=== PATIENT | male | born 1970 | race Caucasian/White ===

== ENCOUNTER 2021-11-30 21:06 | Inpatient (IN) | payer OTHER ==
[~2021-11-30] VITALS: Ht 180.3 cm; Wt 91.5 kg
[~2021-11-30 21:06] MED LIST: ACET-2247 PO; BUSP10TA23 PO; CLOZ100T32 PO; DOCU250C91 PO; HALO100V4 IM; LORA-1000 PO; MIRT-89 PO; MULT-13 PO; OLAN10TA74 PO; OMEP20 PO; PROP10TA73 PO; VENL-68 PO
[2021-11-30] MEDS ORDERED: TOPI25 PO (21:28)
[2021-11-30] MEDS ORDERED: FLUO20CA36 PO (21:28)
[2021-11-30] MEDS ORDERED: CLOZ100T32 PO (21:28)
[2021-11-30] MEDS ORDERED: BENZ2TAB10 PO (21:28)
[2021-11-30] MEDS ORDERED: LORA-1001 PO (21:28)
[2021-11-30] MEDS ORDERED: SUMA25TA9 PO (21:28)
[2021-11-30] MEDS ORDERED: DIVA125C20 PO (21:28)
[2021-11-30] MEDS ORDERED: MIRT-89 PO (22:13)
[2021-11-30 22:30] LABS: BASOPHILS % (AUTO) 0.3 % (0.0-2.0); EOSINOPHILS % (AUTO) 0.5 % (1.0-6.0); HEMOGLOBIN 14.6 g/dL (13.5-17.5); LYMPHOCYTES # (AUTO) 1.4 K/uL (1.0-4.8); LYMPHOCYTES % (AUTO) 17.5 % (22.0-44.0); MEAN CORPUSCULAR HEMOGLOBIN 28.1 pg (26.0-34.0); MEAN CORPUSCULAR HGB CONC 34.1 G/dL (31.0-37.0); MEAN CORPUSCULAR VOLUME 83 fL (80-100); MONOCYTES # (AUTO) 0.5 K/uL (0.1-1.0); MONOCYTES % (AUTO) 5.6 % (2.0-9.0); NEUTROPHILS # (AUTO) 6.3 K/uL (1.8-7.7); NEUTROPHILS % (AUTO) 76.1 % (40.0-70.0); PLATELET COUNT (AUTO) 244 K/uL (150-450); RED BLOOD CELL COUNT(AUTO) 5.21 MIL/uL (4.50-5.90); RED CELL DISTRIBUTION WIDTH 15.2 % (11.5-14.5)
[2021-11-30 22:37] LABS: ANION GAP 13 mmol/L (8-16); CALCIUM, TOTAL 8.5 mg/dL (8.8-10.5); CARBON DIOXIDE 24 mmol/L (22-29); CHLORIDE 101 mmol/L (98-107); CREATININE 0.93 mg/dL (0.60-1.30); GLOMERULAR FILTR. RATE CALC > 60 mL/min (>60); GLUCOSE,RANDOM 199 mg/dL (70-110); POTASSIUM 3.4 mmol/L (3.5-5.1); SODIUM SERUM 138 mmol/L (136-145); UREA NITROGEN, BLOOD 15 mg/dL (7-18)
[2021-11-30 22:43] LABS: ALANINE AMINOTRANSFERASE 45 U/L (12-78); ALBUMIN 3.9 g/dL (3.4-5.0); ALKALINE PHOSPHATASE 58 U/L (46-116); ASPARTATE AMINOTRANSFERASE 21 U/L (15-37); BILIRUBIN,TOTAL 0.3 mg/dL (0.1-1.0); TOTAL PROTEIN, SERUM 7.1 g/dL (6.4-8.2); VALPROIC ACID 65 mcg/mL (50-100)
[2021-11-30 22:56] LABS: COVID AG,FIA SOURCE NASOPHARYNGEAL
[2021-12-01] MEDS ORDERED: SODIUM CHLORIDE 0.9% 1,000 ML IV ONE (01:45)
[2021-12-01] MEDS ORDERED: 0.9% SODIUM CHLORIDE 10 ML SYRINGE IVP PRN (01:45)
[2021-12-01 03:16] VITALS: BP 142/90
[2021-12-01 05:13] LABS: APPEARANCE,URINE HAZY (CLEAR); BILIRUBIN,URINE NEGATIVE (NEGATIVE); GLUCOSE, URINE (UA) NEGATIVE (NEGATIVE); LEUKOCYTE ESTERASE ,URINE NEGATIVE (NEGATIVE); NITRATE,URINE NEGATIVE (NEGATIVE); OCCULT BLOOD,URINE NEGATIVE (NEGATIVE); PH,URINE 6.5 (5.0-8.0); PROTEIN,URINE NEGATIVE (NEGATIVE); SPECIFIC GRAVITIY, URINE 1.012 (1.003-1.030)
[2021-12-01 05:22] LABS: AMPHET/METH SCREEN,URINE NEGATIVE (NEGATIVE); BARBITURATE SCREEN, URINE NEGATIVE (NEGATIVE); BENZODIAZEPINES SCREEN,URINE NEGATIVE (NEGATIVE); CANNABINOID SCREEN,URINE NEGATIVE (NEGATIVE); COCAINE SCREEN,URINE NEGATIVE (NEGATIVE); METHADONE SCREEN, URINE NEGATIVE (NEGATIVE); OPIATE SCREEN,URINE NEGATIVE (NEGATIVE)
[2021-12-01 05:24] LABS: PHENCYCLIDINE SCREEN,URINE NEGATIVE (NEGATIVE)
[2021-12-01 07:45] VITALS: BP 129/91
[2021-12-01] MEDS ORDERED: POTASSIUM CHLORIDE 20 MEQ ER TABLET PO PRN (08:00)
[2021-12-01] MEDS ORDERED: ACETAMINOPHEN 325 MG TABLET PO PRN (08:00)
[2021-12-01] MEDS ORDERED: POTASSIUM CHL 10 MEQ/WATER 50 ML IV PRN (08:00)
[2021-12-01] MEDS ORDERED: MAGNESIUM HYDROXIDE SUSPENSION 30 ML UDCUP PO PRN (08:00)
[2021-12-01] MEDS ORDERED: FAMOTIDINE 20 MG TABLET PO SCH (09:00)
[2021-12-01 10:54] VITALS: BP 130/77
[2021-12-01 14:26] VITALS: BP 145/92
== END 2021-12-01 19:20 | DRG 204 ==
LOC: EMS 21:13 → 5S 12-01 01:00
PROVIDERS: ADMIT Internal Medicine; ATTEND Internal Medicine
DX: R55 Syncope and collapse (principal); E87.6 Hypokalemia; F20.9 Schizophrenia, unspecified; I10 Essential (primary) hypertension; Z20.822 Contact with and (suspected) exposure to COVID-19; W18.30XA Fall on same level, unspecified, initial encounter; Y93.89 Activity, other specified; Y92.89 Other specified places as the place of occurrence of the external cause; T50.915A Adverse effect of multiple unspecified drugs, medicaments and biological substances, initial encounter; Y99.8 Other external cause status; Z88.0 Allergy status to penicillin
CPT/HCPCS: 70450; 71045; 72125; 80053; 80164; 81003; 83036; 84132; 84484; 85025; 87081; 93005; 97116; 97161; 99285; J7030; 36415-L1; 36415-TC

== ENCOUNTER 2024-07-08 11:37 | Inpatient (IN) | payer MEDICAID, OTHER ==
[~2024-07-08] VITALS: Ht 177.8 cm; Wt 76.9 kg
[~2024-07-08 11:37] MED LIST changes: +BENZ2TAB84 PO; +CLOZ100T12 PO; -CLOZ100T32 PO; +DIVA125C20 PO; +FLUO-418 PO; +HALO100V36 IM; -HALO100V4 IM; -LORA-1000 PO; +LORA-1001 PO; +TOPI25 PO; -VENL-68 PO
[2024-07-08] MEDS ORDERED: MIRT-149 PO (12:00)
[2024-07-08] MEDS ORDERED: GABA-1181 PO (12:00)
[2024-07-08] MEDS ORDERED: AMLO-257 PO (12:00)
[2024-07-08] MEDS ORDERED: PROP60CA31 PO (12:00)
[2024-07-08] MEDS: LORazepam 2 MG TABLET PO ONE (12:03)
[2024-07-08] MEDS: HALOPERIDOL 5 MG TABLET PO ONE (12:03)
[2024-07-08 12:18] LABS: BASOPHILS % (AUTO) 0.7 % (0.0-2.0); HEMATOCRIT 39.4 % (41-53); HEMOGLOBIN 13.1 g/dL (13.5-17.5); LYMPHOCYTES # (AUTO) 3.2 K/uL (1.0-4.8); LYMPHOCYTES % (AUTO) 35.7 % (22.0-44.0); MEAN CORPUSCULAR HEMOGLOBIN 27.9 pg (26.0-34.0); MEAN CORPUSCULAR HGB CONC 33.3 G/dL (31.0-37.0); MEAN CORPUSCULAR VOLUME 84 fL (80-100); MONOCYTES # (AUTO) 0.9 K/uL (0.1-1.0); MONOCYTES % (AUTO) 10.2 % (2.0-9.0); NEUTROPHILS # (AUTO) 4.6 K/uL (1.8-7.7); NEUTROPHILS % (AUTO) 51.4 % (40.0-70.0); PLATELET COUNT (AUTO) 262 K/uL (150-450); RED BLOOD CELL COUNT(AUTO) 4.69 MIL/uL (4.50-5.90); RED CELL DISTRIBUTION WIDTH 15.1 % (11.5-14.5); WHITE BLOOD COUNT (AUTO) 8.9 K/uL (4.5-11.0)
[2024-07-08 12:25] LABS: ANION GAP 8 mmol/L (8-16); CALCIUM, TOTAL 8.1 mg/dL (8.8-10.5); CARBON DIOXIDE 27 mmol/L (22-29); CHLORIDE 105 mmol/L (98-107); CREATININE 0.89 mg/dL (0.60-1.30); GLOMERULAR FILTR. RATE CALC > 60 mL/min (>60); GLUCOSE,RANDOM 110 mg/dL (70-110); POTASSIUM 3.4 mmol/L (3.5-5.1); SODIUM SERUM 140 mmol/L (136-145); UREA NITROGEN, BLOOD 9 mg/dL (7-18)
[2024-07-08 12:49] LABS: VALPROIC ACID 48 mcg/mL (50-100)
[2024-07-08 12:55] LABS: ALCOHOL, BLOOD (SERUM) < 3 mg/dL (0-10)
[2024-07-08 13:57] LABS: COVID AG,FIA SOURCE NASAL SWAB
[2024-07-08 14:19] LABS: SARS-COV2 (COVID) ANTIGEN,FIA Negative (Negative)
[2024-07-08] MEDS: POTASSIUM CHLORIDE 20 MEQ ER TABLET PO ONE (14:20)
[2024-07-08 14:29] LABS: APPEARANCE,URINE CLEAR (CLEAR); BILIRUBIN,URINE NEGATIVE (NEGATIVE); COLOR,URINE COLORLESS (YELLOW); GLUCOSE, URINE (UA) NEGATIVE (NEGATIVE); KETONES,URINE NEGATIVE (NEGATIVE); LEUKOCYTE ESTERASE ,URINE NEGATIVE (NEGATIVE); NITRATE,URINE NEGATIVE (NEGATIVE); OCCULT BLOOD,URINE NEGATIVE (NEGATIVE); PH,URINE 6.5 (5.0-8.0); PROTEIN,URINE NEGATIVE (NEGATIVE); SPECIFIC GRAVITIY, URINE 1.004 (1.003-1.030); UROBILINOGEN,URINE <=1.0 mg/dL (<=1.0)
[2024-07-08 14:36] LABS: AMPHET/METH SCREEN,URINE NEGATIVE (NEGATIVE); BARBITURATE SCREEN, URINE NEGATIVE (NEGATIVE); BENZODIAZEPINES SCREEN,URINE NEGATIVE (NEGATIVE); CANNABINOID SCREEN,URINE NEGATIVE (NEGATIVE); COCAINE SCREEN,URINE NEGATIVE (NEGATIVE); METHADONE SCREEN, URINE NEGATIVE (NEGATIVE); OPIATE SCREEN,URINE NEGATIVE (NEGATIVE); PHENCYCLIDINE SCREEN,URINE NEGATIVE (NEGATIVE)
[2024-07-08 14:37] LABS: ALCOHOL, URINE DRUG SCREEN NEGATIVE (NEGATIVE)
[2024-07-08 14:38] LABS: PH,URINE DRUG SCREEN 6.5 (5.0-8.0)
[2024-07-08] MEDS: LORazepam 2 MG TABLET PO PRN (20:41)
[2024-07-08] MEDS: ZOLPIDEM TARTRATE 10 MG TABLET PO PRN (20:41)
[2024-07-08] MEDS: HALOPERIDOL 5 MG TABLET PO PRN (20:41)
[2024-07-09 08:30] VITALS: BP 101/64; PULSE 74; RESP 18; TEMP 97.6; O2SAT 98
[2024-07-09 10:23] VITALS: BP 110/70; PULSE 87; RESP 18; O2SAT 98
[2024-07-09 11:23] VITALS: RESP 18
[2024-07-09] MEDS ORDERED: MULT-660 PO (12:44)
[2024-07-09] MEDS ORDERED: ONDANSETRON 4 MG TABLET PO PRN (12:45)
[2024-07-09] MEDS ORDERED: CloNIDine HCL 0.1 MG TABLET PO PRN (12:45)
[2024-07-09] MEDS ORDERED: ALBUTEROL SULFATE HFA 90 MCG/PUFF 8 GM INHALER IH PRN (12:45)
[2024-07-09] MEDS ORDERED: MAGNESIUM HYDROXIDE SUSPENSION 30 ML UDCUP PO PRN (12:45)
[2024-07-09] MEDS ORDERED: PETROLATUM,WHITE 28 GM JELLY TP PRN (12:45)
[2024-07-09] MEDS ORDERED: MAG HYDROX/ALUMINUM HYD/SIMETH ES 30 ML SUSPENSION UDCUP PO PRN (12:45)
[2024-07-09] MEDS ORDERED: LOPERAMIDE HCL 2 MG CAPSULE PO PRN (12:45)
[2024-07-09] MEDS ORDERED: DOCUSATE SODIUM 100 MG CAPSULE PO PRN (12:45)
[2024-07-09] MEDS ORDERED: NICOTINE 14 MG/24 HOUR PATCH TD PRN (12:45)
[2024-07-09] MEDS ORDERED: GuaiFENesin/D-METHORPHAN [SUGAR-FREE] 200-20MG/10 ML SYRUP UDCUP PO PRN (12:45)
[2024-07-09 20:24] VITALS: BP 120/71; PULSE 82; RESP 18; TEMP 97.9; O2SAT 97
[2024-07-09] MEDS: OLANZapine 10 MG TABLET PO SCH (21:10)
[2024-07-09] MEDS: DIVALPROEX SODIUM 500 MG DR TABLET PO SCH (21:11)
[2024-07-09] MEDS: CloZAPine 100 MG TABLET PO SCH (21:12)
[2024-07-09] MEDS: MIRTAZAPINE 30 MG TABLET PO SCH (21:12)
[2024-07-10 07:38] LABS: CHOL/HDL RATIO 3.5 (4.2-7.3); THYROID STIMULATING HORMONE 3.5 uIU/mL (0.36-3.74)
[2024-07-10 08:56] VITALS: BP 130/78; PULSE 67; RESP 18; TEMP 97.5; O2SAT 97
[2024-07-10] MEDS: FLUoxetine HCL 20 MG CAPSULE PO SCH (09:00)
[2024-07-10] MEDS: AmLODIPine BESYLATE 5 MG TABLET PO SCH (09:00)
[2024-07-10 17:57] VITALS: BP 117/69; PULSE 75; RESP 18; O2SAT 98
[2024-07-10 23:02] VITALS: BP 101/76; PULSE 72; RESP 18; TEMP 97.9; O2SAT 97
[2024-07-11 11:20] VITALS: RESP 18
[2024-07-11 17:30] VITALS: BP 125/72; PULSE 107; RESP 17; TEMP 97.2
[2024-07-11] MEDS: ACETAMINOPHEN 325 MG TABLET PO PRN (17:38)
[2024-07-11 18:30] VITALS: BP 122/69; PULSE 98; RESP 18; TEMP 97.2
[2024-07-11 22:35] VITALS: BP 141/78; PULSE 109; RESP 18; TEMP 98; O2SAT 98
[2024-07-11] MEDS: IBUPROFEN 400 MG TABLET PO PRN (22:39)
[2024-07-11 23:35] VITALS: RESP 18
[2024-07-12 09:15] VITALS: BP 108/73; PULSE 74; RESP 18; O2SAT 98
[2024-07-12 14:07] LABS: TOPIRAMATE (TOPAMAX) LEVEL <1.5 ug/mL (2.0-25.0)
[2024-07-12 17:38] VITALS: BP 117/74; PULSE 88; RESP 20; O2SAT 97
[2024-07-12 21:39] VITALS: BP 111/74; PULSE 80; RESP 18; TEMP 97.7; O2SAT 96
[2024-07-13 10:14] VITALS: RESP 16
[2024-07-13 12:45] VITALS: BP 117/77; PULSE 106; RESP 18; TEMP 97.9
[2024-07-13 13:45] VITALS: BP 121/77; PULSE 100; RESP 18; TEMP 97.6; O2SAT 0
[2024-07-13 21:16] VITALS: BP 100/64; PULSE 82; RESP 18; TEMP 97.6; O2SAT 97
[2024-07-13 22:16] VITALS: RESP 18
[2024-07-14 08:55] VITALS: BP 114/72; PULSE 73; RESP 16; O2SAT 96
[2024-07-14 14:00] LABS: APPEARANCE,URINE CLEAR (CLEAR); BILIRUBIN,URINE NEGATIVE (NEGATIVE); COLOR,URINE YELLOW (YELLOW); GLUCOSE, URINE (UA) NEGATIVE (NEGATIVE); KETONES,URINE TRACE mg/dL (NEGATIVE); LEUKOCYTE ESTERASE ,URINE NEGATIVE (NEGATIVE); NITRATE,URINE NEGATIVE (NEGATIVE); OCCULT BLOOD,URINE NEGATIVE (NEGATIVE); PROTEIN,URINE 30-70 mg/dL (NEGATIVE); SPECIFIC GRAVITIY, URINE 1.025 (1.003-1.030); UROBILINOGEN,URINE <=1.0 mg/dL (<=1.0)
[2024-07-14 14:07] LABS: ALCOHOL, URINE DRUG SCREEN NEGATIVE (NEGATIVE); AMPHET/METH SCREEN,URINE NEGATIVE (NEGATIVE); BARBITURATE SCREEN, URINE NEGATIVE (NEGATIVE); BENZODIAZEPINES SCREEN,URINE NEGATIVE (NEGATIVE); CANNABINOID SCREEN,URINE NEGATIVE (NEGATIVE); COCAINE SCREEN,URINE NEGATIVE (NEGATIVE); METHADONE SCREEN, URINE NEGATIVE (NEGATIVE); OPIATE SCREEN,URINE NEGATIVE (NEGATIVE); PHENCYCLIDINE SCREEN,URINE NEGATIVE (NEGATIVE)
[2024-07-14 15:22] LABS: RBC,URINE 0-2 /HPF (0-2); WBC,URINE 0-2 /HPF (0-5)
[2024-07-14 15:23] LABS: BACTERIA,URINE None Seen /HPF (None Seen); SQUAMOUS EPITHELIAL CELL,UR Rare /LPF (None Seen)
[2024-07-14 20:55] VITALS: BP 140/79; PULSE 100; RESP 18; TEMP 97.6; O2SAT 98
[2024-07-14 21:52] VITALS: BP 140/79; PULSE 100; RESP 18; TEMP 97.6; O2SAT 98
[2024-07-14 22:55] VITALS: RESP 18
[2024-07-15 08:12] LABS: BASOPHILS % (AUTO) 0.5 % (0.0-2.0); EOSINOPHILS % (AUTO) 1.6 % (1.0-6.0); HEMATOCRIT 38.1 % (41-53); HEMOGLOBIN 12.7 g/dL (13.5-17.5); LYMPHOCYTES # (AUTO) 2.7 K/uL (1.0-4.8); LYMPHOCYTES % (AUTO) 30.6 % (22.0-44.0); MEAN CORPUSCULAR HEMOGLOBIN 28.1 pg (26.0-34.0); MEAN CORPUSCULAR HGB CONC 33.3 G/dL (31.0-37.0); MEAN CORPUSCULAR VOLUME 84 fL (80-100); MONOCYTES # (AUTO) 0.7 K/uL (0.1-1.0); MONOCYTES % (AUTO) 8.2 % (2.0-9.0); NEUTROPHILS # (AUTO) 5.3 K/uL (1.8-7.7); NEUTROPHILS % (AUTO) 59.1 % (40.0-70.0); PLATELET COUNT (AUTO) 225 K/uL (150-450); RED BLOOD CELL COUNT(AUTO) 4.52 MIL/uL (4.50-5.90); RED CELL DISTRIBUTION WIDTH 15.1 % (11.5-14.5); WHITE BLOOD COUNT (AUTO) 8.9 K/uL (4.5-11.0)
[2024-07-15 10:26] VITALS: BP 121/81; PULSE 104; RESP 18; TEMP 97.3; O2SAT 98
[2024-07-15] MEDS: HALOPERIDOL LACTATE 5 MG/ML VIAL IM ONE (21:00)
[2024-07-15 21:20] VITALS: BP 134/59; PULSE 83; RESP 18; TEMP 98.2; O2SAT 97
[2024-07-16 10:06] VITALS: BP 105/81; PULSE 67; RESP 16; O2SAT 99
[2024-07-16 20:39] VITALS: BP 132/74; PULSE 84; RESP 18; TEMP 98.1; O2SAT 98
[2024-07-17 08:30] VITALS: BP 118/76; PULSE 91; RESP 17; TEMP 98.9; O2SAT 96
[2024-07-17 20:35] VITALS: BP 123/77; PULSE 116; RESP 18; TEMP 99.3; O2SAT 98
[2024-07-18 09:07] VITALS: BP 120/78; PULSE 90; RESP 18; TEMP 97.7; O2SAT 95
[2024-07-18 21:59] VITALS: BP 112/71; PULSE 95; RESP 18; TEMP 97.8; O2SAT 98
[2024-07-18 22:59] VITALS: RESP 18
[2024-07-19 11:10] VITALS: BP 111/71; PULSE 94; RESP 18; TEMP 98; O2SAT 99
[2024-07-19 20:38] VITALS: BP 118/72; PULSE 95; RESP 18; TEMP 97.5; O2SAT 97
[2024-07-20 09:14] VITALS: BP 122/75; PULSE 84; RESP 19; TEMP 97.5; O2SAT 98
[2024-07-20 20:34] VITALS: BP 121/77; PULSE 86; RESP 18; TEMP 97.4; O2SAT 97
[2024-07-20 23:40] VITALS: BP 118/70; PULSE 85; RESP 17; TEMP 97.5; O2SAT 97
[2024-07-21 10:03] VITALS: BP 115/84; PULSE 83; RESP 18; TEMP 98.7; O2SAT 98
[2024-07-22 08:30] VITALS: BP 133/81; PULSE 97; RESP 18; TEMP 98.1; O2SAT 98
[2024-07-22 08:45] LABS: BASOPHILS % (AUTO) 0.6 % (0.0-2.0); HEMATOCRIT 40.5 % (41-53); HEMOGLOBIN 13.3 g/dL (13.5-17.5); LYMPHOCYTES # (AUTO) 3.1 K/uL (1.0-4.8); MEAN CORPUSCULAR HGB CONC 32.8 G/dL (31.0-37.0); MEAN CORPUSCULAR VOLUME 85 fL (80-100); MONOCYTES # (AUTO) 0.5 K/uL (0.1-1.0); MONOCYTES % (AUTO) 7.8 % (2.0-9.0); NEUTROPHILS # (AUTO) 3.2 K/uL (1.8-7.7); NEUTROPHILS % (AUTO) 44.6 % (40.0-70.0); PLATELET COUNT (AUTO) 262 K/uL (150-450); RED BLOOD CELL COUNT(AUTO) 4.75 MIL/uL (4.50-5.90); RED CELL DISTRIBUTION WIDTH 15.3 % (11.5-14.5); WHITE BLOOD COUNT (AUTO) 7.1 K/uL (4.5-11.0)
[2024-07-22 20:23] VITALS: BP 124/84; PULSE 97; RESP 18; TEMP 98.2
[2024-07-22 21:23] VITALS: RESP 18
[2024-07-22 21:30] VITALS: BP 124/84; PULSE 97; RESP 18; TEMP 98.2; O2SAT 99
[2024-07-23 10:04] VITALS: BP 124/81; PULSE 92; RESP 18; TEMP 97.1; O2SAT 98
[2024-07-23] MEDS: HALOPERIDOL LACTATE 5 MG/ML VIAL IM PRN (20:54)
[2024-07-23 21:38] VITALS: BP 138/83; PULSE 100; RESP 18; TEMP 97.9; O2SAT 98
[2024-07-24 10:02] VITALS: BP 121/78; PULSE 73; RESP 18; TEMP 97; O2SAT 97
[2024-07-24 20:07] VITALS: BP 114/70; PULSE 77; RESP 19; TEMP 97.9; O2SAT 97
[2024-07-25 08:30] VITALS: BP 137/69; PULSE 87; RESP 17; TEMP 97.3; O2SAT 100
[2024-07-25 22:06] VITALS: RESP 17
[2024-07-26 09:29] VITALS: BP 103/69; PULSE 61; RESP 17; TEMP 97.5; O2SAT 98
[2024-07-26 20:45] VITALS: BP 107/70; PULSE 67; RESP 18; TEMP 98.1; O2SAT 98
[2024-07-27 09:00] VITALS: BP 120/67; PULSE 74; RESP 18; TEMP 97; O2SAT 95
[2024-07-27 20:43] VITALS: BP 125/68; PULSE 72; RESP 19; TEMP 97.2; O2SAT 98
[2024-07-28 08:48] VITALS: BP 123/71; PULSE 70; RESP 18; TEMP 97.8; O2SAT 97
[2024-07-28 20:00] VITALS: BP 149/84; PULSE 70; RESP 19; TEMP 97.5; O2SAT 96
[2024-07-29 07:44] LABS: BASOPHILS % (AUTO) 0.5 % (0.0-2.0); EOSINOPHILS % (AUTO) 2.1 % (1.0-6.0); HEMATOCRIT 39.8 % (41-53); HEMOGLOBIN 13.2 g/dL (13.5-17.5); LYMPHOCYTES # (AUTO) 2.2 K/uL (1.0-4.8); LYMPHOCYTES % (AUTO) 32.6 % (22.0-44.0); MEAN CORPUSCULAR HEMOGLOBIN 27.7 pg (26.0-34.0); MEAN CORPUSCULAR HGB CONC 33.1 G/dL (31.0-37.0); MEAN CORPUSCULAR VOLUME 84 fL (80-100); MONOCYTES # (AUTO) 0.7 K/uL (0.1-1.0); MONOCYTES % (AUTO) 10.2 % (2.0-9.0); NEUTROPHILS # (AUTO) 3.8 K/uL (1.8-7.7); NEUTROPHILS % (AUTO) 54.6 % (40.0-70.0); PLATELET COUNT (AUTO) 291 K/uL (150-450); RED BLOOD CELL COUNT(AUTO) 4.76 MIL/uL (4.50-5.90); RED CELL DISTRIBUTION WIDTH 14.8 % (11.5-14.5); WHITE BLOOD COUNT (AUTO) 6.9 K/uL (4.5-11.0)
[2024-07-29 08:53] VITALS: BP 113/55; PULSE 64; RESP 18; TEMP 98.1; O2SAT 99
[2024-07-29 20:35] VITALS: BP 121/78; PULSE 60; RESP 18; TEMP 97.6; O2SAT 97
[2024-07-30 10:35] VITALS: BP 103/60; PULSE 61; RESP 17; TEMP 98.6; O2SAT 99
[2024-07-30 21:13] VITALS: BP 129/77; PULSE 68; RESP 18; TEMP 98.1; O2SAT 99
[2024-07-31 09:48] VITALS: BP 116/73; PULSE 62; RESP 18; TEMP 97; O2SAT 100
[2024-07-31 20:00] VITALS: BP 115/67; PULSE 70; RESP 19; TEMP 97.2; O2SAT 97
[2024-08-01 10:25] VITALS: BP 107/67; PULSE 70; RESP 18; TEMP 96.9; O2SAT 99
[2024-08-01 20:10] VITALS: BP 136/78; PULSE 67; RESP 18; TEMP 97.7; O2SAT 98
[2024-08-02 08:26] VITALS: BP 130/77; PULSE 80; RESP 18; TEMP 98; O2SAT 99
[2024-08-02] MEDS ORDERED: FluPHENAZine HCL 2.5 MG/ML INJ IM PRN (12:30)
[2024-08-02 21:10] VITALS: BP 125/75; PULSE 80; RESP 18; TEMP 97.9; O2SAT 99
[2024-08-03 08:26] LABS: GLUCOMETER DEV NAME(LOC) 3EX.2; GLUCOSE,POINT OF CARE 139 MG/DL (70-110)
[2024-08-03] MEDS: OLANZapine 10 MG TABLET PO SCH (08:53)
[2024-08-03 10:01] LABS: BASOPHILS % (AUTO) 0.2 % (0.0-2.0); EOSINOPHILS % (AUTO) 0 % (1.0-6.0); HEMATOCRIT 44.8 % (41-53); HEMOGLOBIN 14.7 g/dL (13.5-17.5); LYMPHOCYTES # (AUTO) 0.7 K/uL (1.0-4.8); LYMPHOCYTES % (AUTO) 5.1 % (22.0-44.0); MEAN CORPUSCULAR HEMOGLOBIN 27.5 pg (26.0-34.0); MEAN CORPUSCULAR HGB CONC 32.8 G/dL (31.0-37.0); MEAN CORPUSCULAR VOLUME 84 fL (80-100); MONOCYTES # (AUTO) 0.9 K/uL (0.1-1.0); MONOCYTES % (AUTO) 6.6 % (2.0-9.0); NEUTROPHILS # (AUTO) 11.6 K/uL (1.8-7.7); PLATELET COUNT (AUTO) 300 K/uL (150-450); RED BLOOD CELL COUNT(AUTO) 5.34 MIL/uL (4.50-5.90); RED CELL DISTRIBUTION WIDTH 14.9 % (11.5-14.5); WHITE BLOOD COUNT (AUTO) 13.2 K/uL (4.5-11.0)
[2024-08-03 10:02] LABS: NEUTROPHILS % (AUTO) 88.1 % (40.0-70.0)
[2024-08-03 10:20] LABS: ANION GAP 12 mmol/L (8-16); CALCIUM, TOTAL 9.3 mg/dL (8.8-10.5); CARBON DIOXIDE 25 mmol/L (22-29); CHLORIDE 100 mmol/L (98-107); CREATININE 0.99 mg/dL (0.60-1.30); GLOMERULAR FILTR. RATE CALC > 60 mL/min (>60); GLUCOSE,RANDOM 197 mg/dL (70-110); POTASSIUM 3.1 mmol/L (3.5-5.1); SODIUM SERUM 137 mmol/L (136-145); UREA NITROGEN, BLOOD 11 mg/dL (7-18)
[2024-08-03 11:19] VITALS: BP 139/72; PULSE 121; RESP 19; TEMP 97.6; O2SAT 98
[2024-08-03] MEDS: POTASSIUM CHLORIDE 20 MEQ ER TABLET PO ONE (12:48)
[2024-08-03 13:07] LABS: DOPAMINE <30 pg/mL (0-48); EPINEPHRINE 76 pg/mL (0-62); NOREPINEPHRINE 189 pg/mL (0-874)
[2024-08-04 08:59] VITALS: BP 133/81; PULSE 113; RESP 17; TEMP 98; O2SAT 100
[2024-08-04] MEDS: AZITHROMYCIN 500 MG TABLET PO SCH (09:30)
[2024-08-04 20:18] VITALS: BP 122/81; PULSE 98; RESP 18; TEMP 98.2; O2SAT 97
[2024-08-04] MEDS: BENZTROPINE MESYLATE 0.5 MG TABLET PO SCH (21:51)
[2024-08-05 07:42] LABS: BASOPHILS % (AUTO) 0.6 % (0.0-2.0); EOSINOPHILS % (AUTO) 0.6 % (1.0-6.0); HEMATOCRIT 41.2 % (41-53); HEMOGLOBIN 13.7 g/dL (13.5-17.5); LYMPHOCYTES # (AUTO) 1.9 K/uL (1.0-4.8); LYMPHOCYTES % (AUTO) 22.9 % (22.0-44.0); MEAN CORPUSCULAR HGB CONC 33.3 G/dL (31.0-37.0); MEAN CORPUSCULAR VOLUME 84 fL (80-100); MONOCYTES # (AUTO) 0.5 K/uL (0.1-1.0); MONOCYTES % (AUTO) 6.6 % (2.0-9.0); NEUTROPHILS # (AUTO) 5.6 K/uL (1.8-7.7); NEUTROPHILS % (AUTO) 69.3 % (40.0-70.0); PLATELET COUNT (AUTO) 314 K/uL (150-450); RED BLOOD CELL COUNT(AUTO) 4.89 MIL/uL (4.50-5.90); WHITE BLOOD COUNT (AUTO) 8.1 K/uL (4.5-11.0)
[2024-08-05 09:30] VITALS: BP 119/74; PULSE 106; RESP 18; TEMP 97.4; O2SAT 99
[2024-08-05] MEDS: POTASSIUM CHLORIDE 20 MEQ ER TABLET PO ONE (19:43)
[2024-08-05 19:55] LABS: GLUCOMETER DEV NAME(LOC) 3EX.2; GLUCOSE,POINT OF CARE 96 MG/DL (70-110)
[2024-08-05 21:23] VITALS: BP 121/73; PULSE 95; RESP 18; TEMP 98.2; O2SAT 97
[2024-08-06 08:05] LABS: MAGNESIUM 2.1 mg/dL (1.80-2.40); POTASSIUM 3.6 mmol/L (3.5-5.1)
[2024-08-06 08:45] VITALS: BP 108/69; PULSE 96; RESP 18; TEMP 97; O2SAT 98
[2024-08-06] MEDS ORDERED: AZIT-167 PO (12:40)
[2024-08-06] MEDS ORDERED: CLOZ100T61 PO (12:46)
[2024-08-06] MEDS ORDERED: DIVA-112 PO (12:46)
[2024-08-06] MEDS ORDERED: BENZ0.5T52 PO (12:46)
[2024-08-06 20:09] VITALS: BP 124/81; PULSE 96; RESP 19; TEMP 98; O2SAT 97
[2024-08-07 10:10] VITALS: BP 113/73; PULSE 83; RESP 18; TEMP 98.4; O2SAT 96
== END 2024-08-07 16:00 | disposition home or self-care (01) | DRG 750 ==
LOC: EMS 11:37 → 3EI 23:08 → EMS 23:08 → 3EI 23:35
PROVIDERS: ADMIT Psychiatry & Neurology Child & Adolescent Psychiatry; ATTEND Psychiatry & Neurology Child & Adolescent Psychiatry
PROC: GZHZZZZ Group Psychotherapy (ICD-10-PCS; principal; 2024-07-09)
PROC: GZ52ZZZ Individual Psychotherapy, Cognitive (ICD-10-PCS; 2024-07-09)
PROC: GZ56ZZZ Individual Psychotherapy, Supportive (ICD-10-PCS; 2024-07-09)
DX: F25.0 Schizoaffective disorder, bipolar type (principal); D64.9 Anemia, unspecified; E78.5 Hyperlipidemia, unspecified; E87.6 Hypokalemia; Z20.822 Contact with and (suspected) exposure to COVID-19; F41.9 Anxiety disorder, unspecified; F98.8 Other specified behavioral and emotional disorders with onset usually occurring in childhood and adolescence; G47.00 Insomnia, unspecified; I10 Essential (primary) hypertension; K21.9 Gastro-esophageal reflux disease without esophagitis; Z88.0 Allergy status to penicillin
CPT/HCPCS: 71046; 80048; 80061; 80164; 80201; 80307; 81001; 81003; 82384; 82962; 83036; 83735; 84132; 84443; 85025; 87081; 99285; G0480; J1630; 36415-L1; 36415-TC